=== PATIENT | male | born 1985 | race American Indian/Alaskan Native ===

== ENCOUNTER 2019-10-29 16:34 | Emergency (ER) | payer OTHER ==
[2019-10-29] MEDS ORDERED: FLU Vacc QS2019-20(6MOS+)/PF 60 MCG/0.5 ML SYRINGE IM ONE (17:30)
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
--- NOTE | 2019-11-03 06:34 | CT ---
Head CT Technique: Multiple axial sections through the brain were obtained. Intravenous contrast was not utilized. Comparison: Prior head CT study of 11/21/13. Findings: Ventricles are moderately dilated. Findings are stable from previous exam. Sulci over the convexities appear within normal limits. No abnormal parenchymal densities are seen. No evidence of intracranial hemorrhage. No midline shift or mass effect is seen. Visualized sinuses show nothing acute. No acute calvarial abnormality is seen. Mastoid sinuses are clear. Impression: 1. Stable head CT study from previous exam. 2. No acute intracranial abnormality is appreciated. Diagnostic code #2 This report was dictated in [place] Standard Time I agree with preliminary report from [facility], finalized on 10/29/19, 7:12 PM Central Time
== END 2019-10-29 18:27 | disposition home or self-care (01) ==
LOC: JD.ED 16:34
DX: S06.0X9A Concussion with loss of consciousness of unspecified duration, initial encounter (principal); R40.2412 Glasgow coma scale score 13-15, at arrival to emergency department; F17.210 Nicotine dependence, cigarettes, uncomplicated; Z88.5 Allergy status to narcotic agent; Z23 Encounter for immunization; W00.0XXA Fall on same level due to ice and snow, initial encounter; Y93.01 Activity, walking, marching and hiking; Y92.89 Other specified places as the place of occurrence of the external cause
CPT/HCPCS: 70450; 70450-26; 90686; 99283; 99284-25; G0008

== ENCOUNTER 2020-10-05 11:48 | Emergency (ER) | payer SELFPAY ==
[2020-10-05] MEDS ORDERED: Sodium Chloride 0.9% 10 ML Syringe FLUSH PRN (12:02)
--- NOTE | 2020-10-05 12:21 | EDM.PDOC ---
ED HPI GENERAL MEDICAL PROBLEM - General Chief Complaint: Lower Extremity Injury/Pain Stated Complaint: R LEG SWOLLEN Time Seen by Provider: 10/05/20 11:54 Source of Information: Reports: Patient, RN Notes Reviewed History Limitations: Reports: No Limitations - History of Present Illness INITIAL COMMENTS - FREE TEXT/NARRATIVE: Patient is a 35-year-old male presenting to the emergency department with complaints of redness, warmth, and swelling to his right lower extremity. He states that he bumped it a few days back has been developing progressive swelling, redness, and warmth since that time. He states 2 days ago he had a fever 103, however he has been afebrile since that time. He denies any history of blood clots. Denies any nausea or vomiting. Right Lower Leg Pain Score (Numeric/FACES): 7 - Related Data Allergies Allergy/AdvReac Type Severity Reaction Status Date / Time hydrocodone Allergy Itching Verified 10/05/20 11:56 Home Meds: Home Meds Doxycycline [Vibramycin] 100 mg PO BID 10 Days #20 tab 10/05/20 [Rx] Past Medical History Respiratory History: Reports: Pneumonia, Recurrent Psychiatric History: Reports: Anxiety - Past Surgical History Musculoskeletal Surgical History: Reports: Arthroscopic Knee, Other (See Below) Other Musculoskeletal Surgeries/Procedures:: tendon repair to R) knee Social & Family History - Tobacco Use Tobacco Use Status *Q: Current Every Day Tobacco User Years of Tobacco use: 4 Packs/Tins Daily: 0.1 - Caffeine Use Caffeine Use: Reports: None - Recreational Drug Use Recreational Drug Use: Yes Recreational Drug Type: Reports: Fentanyl Recreational Drug Use Frequency: Daily Review of Systems - Review of Systems Review Of Systems: See Below Constitutional: Reports: Fever. Denies: Chills Eyes: Reports: No Symptoms Ears: Reports: No Symptoms Nose: Reports: No Symptoms Mouth/Throat: Reports: No Symptoms Respiratory: Reports: No Symptoms Cardiovascular: Reports: No Symptoms GI/Abdominal: Reports: No Symptoms. Denies: Diarrhea, Nausea, Vomiting Genitourinary: Reports: No Symptoms Musculoskeletal: Reports: Other (Redness, warmth, and swelling of the right lower extremity the level of the ankle to mid calf.) Skin: Reports: No Symptoms Neurological: Reports: No Symptoms Psychiatric: Reports: No Symptoms ED EXAM, GENERAL - Physical Exam Exam: See Below General Appearance: Alert, WD/WN, No Apparent Distress Respiratory/Chest: No Respiratory Distress, Lungs Clear, Normal Breath Sounds, No Accessory Muscle Use, Chest Non-Tender Cardiovascular: Normal Peripheral Pulses, Regular Rate, Rhythm, No Edema, No G allop, No JVD, No Murmur, No Rub GI/Abdominal: Normal Bowel Sounds, Soft, Non-Tender, No Organomegaly, No Distention, No Abnormal Bruit, No Mass Extremities: Other (Generalized redness, warmth, and edema to the right lower extremity from the level of the ankle to the mid calf. No open areas.) Neurological: Alert, Oriented, CN II-XII Intact, Normal Cognition, Normal Gait, Normal Reflexes, No Motor/Sensory Deficits Psychiatric: Normal Affect, Normal Mood Skin Exam: Warm, Dry, Intact, Normal Color, No Rash Course - Vital Signs Last Recorded V/S: Last Vital Signs Temp 97.9 F 10/05/20 11:53 Pulse 72 10/05/20 11:53 Resp 18 10/05/20 11:53 BP 158/95 H 10/05/20 11:53 Pulse Ox 98 10/05/20 11:53 - Orders/Labs/Meds Orders: Active Orders 24 hr Category Date Time Status Peripheral IV Care [RC] . DIRECTED Care 10/05/20 12:02 Active VL Duplex Lwr Ext Veins Ltd Rt [US] Stat Exams 10/05/20 12:56 Taken Sodium Chloride 0.9% [Saline Flush] Med 10/05/20 12:02 Active 10 ml FLUSH ASDIRECTED PRN Peripheral IV Insertion Adult [OM.PC] Stat Oth 10/05/20 12:02 Ordered Medication Orders Sodium Chloride (Saline Flush) 10 ml FLUSH ASDIRECTED PRN PRN Reason: Keep Vein Open Labs: Laboratory Tests 10/05/20 10/05/20 10/05/20 Range/Units 12:16 12:16 12:16 WBC 8.84 (4.23-9.07) K/mm3 RBC 4.72 (4.63-6.08) M/mm3 Hgb 13.4 L (13.7-17.5) gm/dl Hct 39.5 L (40.1-51.0) % MCV 83.7 (79.0-92.2) fl MCH 28.4 (25.7-32.2) pg MCHC 33.9 (32.2-35.5) g/dl RDW Std Deviation 38.4 (35.1-43.9) fL Plt Count 274 (163-337) K/mm3 MPV 9.9 (9.4-12.3) fl Neut % (Auto) 74.7 H (34.0-67.9) % Lymph % (Auto) 14.7 L (21.8-53.1) % [place] % (Auto) 8.9 (5.3-12.2) % Eos % (Auto) 1.0 (0.8-7.0) Baso % (Auto) 0.5 (0.1-1.2) % Neut # (Auto) 6.60 H (1.78-5.38) K/mm3 Lymph # (Auto) 1.30 L (1.32-3.57) K/mm3 [place] # (Auto) 0.79 (0.30-0.82) K/mm3 Eos # (Auto) 0.09 (0.04-0.54) K/mm3 Baso # (Auto) 0.04 (0.01-0.08) K/mm3 D-Dimer, Quantitative 0.59 H (0.19-0.50) mg/L Sodium 135 L (136-145) mEq/L Potassium 4.1 (3.5-5.1) mEq/L Chloride 99 (98-107) mEq/L Carbon Dioxide 26 (21-32) mEq/L Anion Gap 14.1 (5-15) BUN 6 L (7-18) mg/dL Creatinine 0.8 (0.7-1.3) mg/dL Est Cr Clr Drug Dosing 172.43 mL/min Estimated GFR (MDRD) > 60 (>60) mL/min BUN/Creatinine Ratio 7.5 L (14-18) Glucose 145 H (74-106) mg/dL Calcium 9.1 (8.5-10.1) mg/dL Total Bilirubin 0.7 (0.2-1.0) mg/dL AST 15 (15-37) U/L ALT 22 (16-63) U/L Alkaline Phosphatase 120 H (46-116) U/L C-Reactive Protein 17.0 H* (<1.0) mg/dL Total Protein 8.2 (6.4-8.2) g/dl Albumin 3.1 L (3.4-5.0) g/dl Globulin 5.1 gm/dL Albumin/Globulin Ratio 0.6 L (1-2) Meds: Medications Generic Name Dose Route Start Last Admin Trade Name Beena PRN Reason Stop Dose Admin Sodium Chloride 10 ml 10/05/20 12:02 Saline Flush FLUSH ASDIRECTED PRN Keep Vein Open Discontinued Medications Generic Name Dose Route Start Last Admin Trade Name Freq PRN Reason Stop Dose Admin Ceftriaxone Sodium 1 gm/ 0 gm 10/05/20 13:51 Lidocaine HCl 2.1 ml IM 10/05/20 13:52 ONETIME ONE - Re-Assessments/Exams Free Text/Narrative Re-Assessment/Exam: Patient is a 35-year-old male presenting to the emergency department with complaints of redness, swelling, warmth of his right lower extremity from the level of the ankle to about mid calf. States a few days back that he bumped it and since then it has been getting progressively more red and swollen. He did have a fever 2 days ago, however has been afebrile since that time. Denies any nausea or vomiting. Exam is suspicious for cellulitis versus a less likely DVT. I ordered CBC, CMP, CRP, D-dimer. 10/05/20 13:56 Hematology was significant for D-dimer minimally elevated at 0.59, CRP 17.0. WBCs were normal. Venous Doppler ultrasound of the right lower extremity was completed and was negative for blood clot. We will treat the patient for cellulitis. He will receive Rocephin 1 g IM now, as well as doxycycline 200 mg by mouth. I will write a prescription for doxycycline. Discharge instructions as documented. Departure - Departure Time of Disposition: 13:56 Disposition: Home, Self-Care 01 Condition: Good Clinical Impression: Cellulitis Qualifiers: Site of cellulitis: extremity Site of cellulitis of extremity: lower extremity Laterality: right Qualified Code(s): L03.115 - Cellulitis of right lower limb - Discharge Information *PRESCRIPTION DRUG MONITORING PROGRAM REVIEWED*: No *COPY OF PRESCRIPTION DRUG MONITORING REPORT IN PATIENT JOSE: No Prescriptions: Doxycycline [Vibramycin] 100 mg PO BID 10 Days #20 tab Instructions: Cellulitis, Adult, [id number] Referrals: PCP,None [Primary Care Provider] - Forms: ED Department Discharge Additional Instructions: You were seen in the emergency department today for redness, warmth, and swelling to your right lower extremity. Work-up included blood work any ultrasound of the extremity. There was no signs of blood clot. As we discusse d, you are suffering from cellulitis which is an infection of the skin. While in the ER, you received an injection of Rocephin, as well as your first dose of doxycycline. A prescription for doxycycline 100 mg twice daily has been sent to [facility] [place] twice. Take this medication as prescribed starting this evening. Watch for signs of worsening infection including increased fever, nausea, vomiting, or any other concerning symptoms. If this should occur, return to the emergency department. Sepsis Event Note (ED) - Evaluation Sepsis Screening Result: No Definite Risk - Focused Exam Vital Signs: Vital Signs Temp Pulse Resp BP Pulse Ox 10/05/20 11:53 97.9 F 72 18 158/95 H 98 - My Orders Last 24 Hours: My Active Orders 10/05/20 12:02 Peripheral IV Care [RC] . DIRECTED Sodium Chloride 0.9% [Saline Flush] 10 ml FLUSH ASDIRECTED PRN Peripheral IV Insertion Adult [OM.PC] Stat 10/05/20 12:56 VL Duplex Lwr Ext Veins Ltd Rt [US] Stat - Assessment/Plan Last 24 Hours: My Active Orders 10/05/20 12:02 Peripheral IV Care [RC] . DIRECTED Sodium Chloride 0.9% [Saline Flush] 10 ml FLUSH ASDIRECTED PRN Peripheral IV Insertion Adult [OM.PC] Stat 10/05/20 12:56 VL Duplex Lwr Ext Veins Ltd Rt [US] Stat
[2020-10-05] MEDS ORDERED: cefTRIAXone 1 GM, Lidocaine 1% 2.1 ML IM ONE ×2 (13:51)
[2020-10-05] MEDS ORDERED: Doxycycline 100 MG Cap PO ONE (13:56)
[2020-10-05] MEDS ORDERED: Doxycycline 100 MG Cap ONE (14:09)
--- NOTE | 2020-10-05 14:41 | US ---
PROCEDURE INFORMATION: Exam: US Duplex Right Lower Extremity Veins, Limited Exam date and time: 10/05/2020 1:08 PM Age: 35 years old Clinical indication: Abnormal findings; Abnormal lab test; Elevated d-dimer TECHNIQUE: Imaging protocol: Real-time Duplex ultrasound of the Right Lower Extremity with 2-D cottrell scale, color Doppler flow and spectral waveform analysis with image documentation. Limited exam was focused on the right lower extremity veins. COMPARISON: No relevant prior studies available. FINDINGS: Right deep veins: Unremarkable. The common femoral, femoral, proximal profunda femoral and popliteal veins are patent without thrombus. Normal Doppler waveforms. Normal compressibility and/or augmentation response. Right superficial veins: Unremarkable. Saphenofemoral junction is patent without thrombus. Soft tissues: Unremarkable. IMPRESSION: No evidence of deep vein thrombosis. Thank you for allowing us to participate in the care of your patient. Dictated and Authenticated by: Andrew Leone DO 10/05/2020 2:35 PM Central Time ([place] & [place]) KANA
== END 2020-10-05 14:20 | disposition home or self-care (01) ==
LOC: JD.ED 11:48
DX: L03.115 Cellulitis of right lower limb (principal); Z88.5 Allergy status to narcotic agent; F17.210 Nicotine dependence, cigarettes, uncomplicated
CPT/HCPCS: 36415; 80053; 85025; 85379; 86140; 93971; 96372; 99284; A9270; J0696; J2001; 99283

== ENCOUNTER 2021-01-21 13:04 | Emergency (ER) | payer SELFPAY ==
--- NOTE | 2021-01-21 14:33 | EDM.PDOC ---
ED HPI GENERAL MEDICAL PROBLEM - General Chief Complaint: Lower Extremity Injury/Pain Stated Complaint: L FOOT PAIN Time Seen by Provider: 01/21/21 13:34 Source of Information: Reports: Patient, RN Notes Reviewed - History of Present Illness INITIAL COMMENTS - FREE TEXT/NARRATIVE: Onset of L foot pain 10 to 14 days ago. [place] something pop when he was walking. Does not recall that he twisted his foot or ankle. No fall or blow. Pain is mid dorsal foot with wt bearing. There has been some swelling. Has also had numbness bottom of feet for about the past 6 months. States he did have L foot injury many yrs ago that he never at treated. Left Foot Pain Score (Numeric/FACES): 6 - Related Data Allergies Allergy/AdvReac Type Severity Reaction Status Date / Time hydrocodone Allergy Itching Verified 01/21/21 13:31 Home Meds: Home Meds Doxycycline [Vibramycin] 100 mg PO BID 10 Days #20 tab 10/05/20 [Rx] Past Medical History - Past Health History Medical/Surgical History: Denies Medical/Surgical History Respiratory History: Reports: Pneumonia, Recurrent Psychiatric History: Reports: Anxiety - Past Surgical History Musculoskeletal Surgical History: Reports: Arthroscopic Knee, Other (See Below) Other Musculoskeletal Surgeries/Procedures:: tendon repair to R) knee Social & Family History - Tobacco Use Tobacco Use Status *Q: Current Some Day Tobacco User Years of Tobacco use: 4 Packs/Tins Daily: 0.1 - Caffeine Use Caffeine Use: Reports: None - Recreational Drug Use Recreational Drug Use: No Review of Systems - Review of Systems Review Of Systems: See Below Constitutional: Reports: No Symptoms Respiratory: Reports: No Symptoms Cardiovascular: Reports: No Symptoms GI/Abdominal: Reports: No Symptoms Musculoskeletal: Reports: Foot Pain Skin: Reports: No Symptoms Neurological: Denies: Numbness (bottom of both feet off and on for months) ED EXAM, GENERAL - Physical Exam Exam: See Below General Appearance: Alert, No Apparent Distress (at rest) Head: Atraumatic Neck: Supple Respiratory/Chest: No Respiratory Distress Extremities: Other (L foot mildly swollen compared to the right, mild to moderate tenderness mid ant foot, distal foot nontender, no visible deformity). No: Leg Pain Neurological: No Motor/Sensory Deficits Skin Exam: Warm, Dry, Normal Color Course - Vital Signs Last Recorded V/S: Last Vital Signs Temp 97.5 F 01/21/21 13:34 Pulse 80 01/21/21 14:52 Resp 18 01/21/21 13:34 BP 140/82 01/21/21 14:52 Pulse Ox 99 01/21/21 14:52 - Orders/Labs/Meds Orders: Active Orders 24 hr Category Date Time Status Durable Medical Equipment for Discharge [DME for Oth 01/21/21 14:30 Ordered Discharge] [COMM] Stat - Re-Assessments/Exams Free Text/Narrative Re-Assessment/Exam: 01/21/21 16:14 Xrays showed a small calcification base of 1st metatarsal, no other visible fx. I now have Radiologist report after pt. has been discharged and sent home that he has Lisfranc injury with lateral shifting of the metarsals in relation to the tarsal bones. Pt notified. I have no Orthopedist food preparation kitchen aide today. He would like to work with [facility]. 01/21/21 16:36, Have discussed this with Dr Krueger, Applications [employer]. He states the crutches and nonweightbearing is good treatment for now. They will call patient Sunday morning, give him a time to come to the clinic to see Dr Krueger sometime later Sunday. Pt notified. He will continue with crutches and nonweight bearing. Have advised he use an sangeeta wrap, continue to work with ice and elevation. Departure - Departure Time of Disposition: 14:31 Disposition: Home, Self-Care 01 Condition: Fair Clinical Impression: Foot pain, left Lisfranc dislocation Qualifiers: Encounter type: initial encounter Laterality: left Qualified Code(s): S93.325A - Dislocation of tarsometatarsal joint of left foot, initial encounter - Discharge Information Instructions: Foot Pain Referrals: PCP,None [Primary Care Provider] - Forms: ED Department Discharge Additional Instructions: Us crutches until pain resolving. Continue to rest and elevate foot as much as possible. Continue ice packs as needed for swelling. alternate tylenol and ibuprofen as needed for discomfort. See medical provider for completely physical, further evaluation regarding the numbness of your feet that you are experiencing. Call for appt. to be seen in the next 1 to 2 weeks. As noted Pt called to notify him of Lisfranc Injury now apparent looking back at his Xrays. Was not expecting or looking for anything like that with very benign mechanism of injury. He has been advised to use the crutches nonweight bearing as previously advised. [facility] will be calling him Sunday morning for appointment, most likely sometime Sunday 3 days from now. Sepsis Event Note (ED) - Evaluation Sepsis Screening Result: No Definite Risk - My Orders Last 24 Hours: My Active Orders 01/21/21 14:30 Durable Medical Equipment for Discharge [DME for Discharge] [COMM] Stat - Assessment/Plan Last 24 Hours: My Active Orders 01/21/21 14:30 Durable Medical Equipment for Discharge [DME for Discharge] [COMM] Stat
--- NOTE | 2021-01-21 15:18 | CR ---
Left foot: 4 views of the left foot were obtained. Comparison: No previous study. There is lateral shifting of the metatarsals in relation to the tarsal bones compatible with Lisfranc injury. Small bony densities are seen within the foot between the first and second metatarsals compatible with previous injury. No acute fracture is seen. Soft tissue swelling is noted. Impression: 1. Findings of Lisfranc injury as noted above. 2. Soft tissue swelling. Diagnostic code #3
== END 2021-01-21 14:53 | disposition home or self-care (01) ==
LOC: JD.ED 13:04
DX: S93.325A Dislocation of tarsometatarsal joint of left foot, initial encounter (principal); Z72.0 Tobacco use; Z88.5 Allergy status to narcotic agent; X50.1XXA Overexertion from prolonged static or awkward postures, initial encounter
CPT/HCPCS: 73630-26-LT; 73630-LT; 99283; 99283-25

== ENCOUNTER 2021-05-27 23:46 | Observation (INO) | payer SELFPAY ==
--- NOTE | 2021-05-28 00:09 | EDM.PDOC ---
ED HPI GENERAL MEDICAL PROBLEM - General Chief Complaint: Respiratory Problem Stated Complaint: SOB,COUGHING Time Seen by Provider: 05/27/21 23:55 Source of Information: Reports: Patient History Limitations: Reports: No Limitations - History of Present Illness INITIAL COMMENTS - FREE TEXT/NARRATIVE: Patient is a 36-year-old male who is complaining of having a cough which started last night occasionally productive of white sputum and worsening symptoms of dyspnea that turned much worse at 6 PM tonight. Patient denies any fever chills any nausea vomiting diarrhea. He is a cigarette smoker but has not smoked any over the last week and smokes less than a pack a day. He has no history of asthma or COPD. He has never had similar symptoms in the past. Patient is having dyspnea on exertion and is working hard to breathe sitting on the stretcher. He denies any bloody or tarry stools denies any swelling to his ankles or calfs. Is taken nothing for his current symptoms. Patient has no Covid risk factors having never traveled outside of [place] and did not receive any vaccination though his significant other in the room has been vaccinated. Duration: Day(s): (1 day), Getting Worse Location: Reports: Chest Severity: Moderate Improves with: Reports: None Worsens with: Reports: Breathing, Movement Associated Symptoms: Reports: No Other Symptoms Chest Pain Score (Numeric/FACES): 3 - Related Data Allergies Allergy/AdvReac Type Severity Reaction Status Date / Time hydrocodone Allergy Itching Verified 05/28/21 00:09 Past Medical History - Past Health History Medical/Surgical History: Denies Medical/Surgical History Respiratory History: Reports: Pneumonia, Recurrent Psychiatric History: Reports: Anxiety - Past Surgical History Musculoskeletal Surgical History: Reports: Arthroscopic Knee, Other (See Below) Other Musculoskeletal Surgeries/Procedures:: tendon repair to R) knee Social & Family History - Caffeine Use Caffeine Use: Reports: None ED ROS GENERAL - Review of Systems Review Of Systems: Comprehensive ROS is negative, except as noted in HPI. ED EXAM, GENERAL - Physical Exam Exam: See Below Exam Limited By: Respiratory Distress General Appearance: Alert, Moderate Distress Head: Atraumatic Neck: Normal Inspection, Supple Respiratory/Chest: Respiratory Distress, Decreased Breath Sounds, Retractions. No: Crackles, Rales, Rhonchi, Wheezing Cardiovascular: Regular Rate, Rhythm, No JVD GI/Abdominal: Normal Bowel Sounds Back Exam: Normal Inspection Extremities: Normal Inspection, No Pedal Edema Neurological: Alert, Oriented, Normal Cognition Psychiatric: Normal Affect Skin Exam: Warm, Dry, Normal Color, No Rash Lymphatic: No Adenopathy Course - Vital Signs Text/Narrative:: Patient is feeling somewhat better after 2 DuoNeb treatments. He feels that he is moving more air. His O2 sat on 2 L nasal cannula is 90%. When I turn off his oxygen even for a few minutes he goes down to 87%. I am getting a CT of his chest to rule out pneumonia since his D-dimer is 0.58. His white blood cell count is also normal. His Covid test results are negative and his cardiac enzymes are negative. Patient's CT scan shows some right middle lobe atelectas is but no clear pneumonia. On 2 L nasal cannula patient is now satting down to 88 to 89%. Ambulating him without oxygen drops his O2 sat to 80%. I am giving him an additional 20 mg of prednisone and another DuoNeb treatment and start him on Levaquin for probable pneumonia. Patient was discussed with hospitalist Dr. Ferraro and he will be admitted to the hospital at this time. He is asked me to write some bridging orders. Patient is aware of the above plan. Last Recorded V/S: Last Vital Signs Temp 98.5 F 05/27/21 23:58 Pulse 111 H 05/28/21 01:08 Resp 22 H 05/28/21 01:08 BP 145/79 H 05/28/21 01:08 Pulse Ox 88 L 05/28/21 01:08 - Orders/Labs/Meds Orders: Active Orders 24 hr Category Date Time Status Oxygen Therapy [RC] ASDIRECTED Care 05/28/21 00:12 Active RT Aerosol Therapy [RC] ASDIRECTED Care 05/28/21 00:16 Active RT Aerosol Therapy [RC] ASDIRECTED Care 05/28/21 00:45 Active RT Aerosol Therapy [RC] ASDIRECTED Care 05/28/21 02:52 Active Chest 2V [CR] Stat Exams 05/28/21 00:12 Stop Req Chest wo Cont [CT] Stat Exams 05/28/21 01:12 Taken Levofloxacin/Dextrose 5%-Water [Levaquin in D5W 500 MG/ Med 05/28/21 03:00 Active 100 ML] 500 mg Premix Bag 1 bag IV Q24H Medication Orders Levofloxacin/Dextrose 500 mg/ (Premix) 100 mls @ 100 mls/hr IV Q24H SENAIT Labs: Laboratory Tests 05/28/21 05/28/21 05/28/21 Range/Units 00:20 00:20 00:20 WBC 6.56 (4.23-9.07) K/mm3 RBC 5.27 (4.63-6.08) M/mm3 Hgb 14.6 (13.7-17.5) gm/dl Hct 43.3 (40.1-51.0) % MCV 82.2 (79.0-92.2) fl MCH 27.7 (25.7-32.2) pg MCHC 33.7 (32.2-35.5) g/dl RDW Std Deviation 41.5 (35.1-43.9) fL Plt Count 189 D (163-337) K/mm3 MPV 10.6 (9.4-12.3) fl Neutrophils % (Manual) 58 (40-60) % Band Neutrophils % 30 H (0-10) % Lymphocytes % (Manual) 7 L (20-40) % Atypical Lymphs % 0 % Monocytes % (Manual) 4 (2-10) % Eosinophils % (Manual) 0 L (0.8-7.0) % Basophils % (Manual) 1 (0.2-1.2) Platelet Estimate Adequate Plt Morphology Comment Normal RBC Morph Comment Normal D-Dimer, Quantitative (0.19-0.50) mg/L Sodium 135 L (136-145) mEq/L Potassium 4.3 (3.5-5.1) mEq/L Chloride 99 (98-107) mEq/L Carbon Dioxide 26 (21-32) mEq/L Anion Gap 14.3 (5-15) BUN 12 (7-18) mg/dL Creatinine 0.7 (0.7-1.3) mg/dL Est Cr Clr Drug Dosing 195.21 mL/min Estimated GFR (MDRD) > 60 (>60) mL/min BUN/Creatinine Ratio 17.1 (14-18) Glucose 133 H (70-99) mg/dL Lactic Acid 0.8 (0.4-2.0) mmol/L Calcium 8.9 (8.5-10.1) mg/dL Total Bilirubin 1.0 (0.2-1.0) mg/dL AST 35 (15-37) U/L ALT 26 (16-63) U/L Alkaline Phosphatase 150 H (46-116) U/L CK-MB (CK-2) 1.0 (0-3.6) ng/ml Troponin I < 0.017 (0.00-0.056) ng/mL Total Protein 9.1 H (6.4-8.2) g/dl Albumin 3.7 (3.4-5.0) g/dl Globulin 5.4 gm/dL Albumin/Globulin Ratio 0.7 L (1-2) Influenza Type A RNA (NEGATIVE) Influenza Type B RNA (NEGATIVE) SARS-CoV-2 RNA (AMITA) (NEGATIVE) 05/28/21 05/28/21 Range/Units 00:20 00:20 WBC (4.23-9.07) K/mm3 RBC (4.63-6.08) M/mm3 Hgb (13.7-17.5) gm/dl Hct (40.1-51.0) % MCV (79.0-92.2) fl MCH (25.7-32.2) pg MCHC (32.2-35.5) g/dl RDW Std Deviation (35.1-43.9) fL Plt Count (163-337) K/mm3 MPV (9.4-12.3) fl Neutrophils % (Manual) (40-60) % Band Neutrophils % (0-10) % Lymphocytes % (Manual) (20-40) % Atypical Lymphs % % Monocytes % (Manual) (2-10) % Eosinophils % (Manual) (0.8-7.0) % Basophils % (Manual) (0.2-1.2) Platelet Estimate Plt Morphology Comment RBC Morph Comment D-Dimer, Quantitative 0.58 H (0.19-0.50) mg/L Sodium (136-145) mEq/L Potassium (3.5-5.1) mEq/L Chloride (98-107) mEq/L Carbon Dioxide (21-32) mEq/L Anion Gap (5-15) BUN (7-18) mg/dL Creatinine (0.7-1.3) mg/dL Est Cr Clr Drug Dosing mL/min Estimated GFR (MDRD) (>60) mL/min BUN/Creatinine Ratio (14-18) Glucose (70-99) mg/dL Lactic Acid (0.4-2.0) mmol/L Calcium (8.5-10.1) mg/dL Total Bilirubin (0.2-1.0) mg/dL AST (15-37) U/L ALT (16-63) U/L Alkaline Phosphatase (46-116) U/L CK-MB (CK-2) (0-3.6) ng/ml Troponin I (0.00-0.056) ng/mL Total Protein (6.4-8.2) g/dl Albumin (3.4-5.0) g/dl Globulin gm/dL Albumin/Globulin Ratio (1-2) Influenza Type A RNA Negative (NEGATIVE) Influenza Type B RNA Negative (NEGATIVE) SARS-CoV-2 RNA (AMITA) Negative (NEGATIVE) Meds: Medications Generic Name Dose Route Start Last Admin Trade Name Freq PRN Reason Stop Dose Admin Levofloxacin/Dextrose 500 mg/ 100 mls @ 100 mls/hr 05/28/21 03:00 Premix IV Q24H SENAIT Discontinued Medications Generic Name Dose Route Start Last Admin Trade Name Freq PRN Reason Stop Dose Admin Albuterol/Ipratropium 3 ml 05/28/21 00:15 05/28/21 00:34 Albuterol/Ipratropium 3.0-0.5 Mg/3 Ml Neb Soln NEB 05/28/21 00:16 3 ml ONETIME ONE Administration Albuterol/Ipratropium 3 ml 05/28/21 00:45 05/28/21 00:53 Albuterol/Ipratropium 3.0-0.5 Mg/3 Ml Neb Soln NEB 05/28/21 00:46 3 ml ONETIME ONE Administration Albuterol/Ipratropium Confirm 05/28/21 00:44 05/28/21 00:53 Albuterol/Ipratropium 3.0-0.5 Mg/3 Ml Neb Soln Administered 05/28/21 00:45 Not Given Dose 3 ml .ROUTE .STK-MED ONE Albuterol/Ipratropium 3 ml 05/28/21 02:52 05/28/21 02:58 Albuterol/Ipratropium 3.0-0.5 Mg/3 Ml Neb Soln NEB 05/28/21 02:53 3 ml ONETIME ONE Administration Prednisone 20 mg 05/28/21 00:16 05/28/21 01:04 Prednisone 20 Mg Tab PO 05/28/21 00:17 Not Given ONETIME ONE Prednisone 40 mg 05/28/21 00:25 05/28/21 01:01 Prednisone 20 Mg Tab PO 05/28/21 00:26 40 mg ONETIME ONE Administration Prednisone 20 mg 05/28/21 02:54 Prednisone 20 Mg Tab PO 05/28/21 02:55 ONETIME ONE Departure - Departure Time of Disposition: 03:09 Disposition: Refer to Observation Condition: Fair Clinical Impression: Dyspnea, Hypoxia, Asthmatic bronchitis - Discharge Information Referrals: PCP,None [Primary Care Provider] - Forms: ED Department Discharge Sepsis Event Note (ED) - Focused Exam Vital Signs: Vital Signs Temp Pulse Resp BP Pulse Ox Pulse Ox 05/28/21 01:08 111 H 22 H 145/79 H 88 L 05/28/21 00:53 92 L 05/28/21 00:37 92 L 05/27/21 23:58 98.5 F 93 17 154/80 H 88 L - My Orders Last 24 Hours: My Active Orders 05/28/21 00:12 Oxygen Therapy [RC] ASDIRECTED Chest 2V [CR] Stat 05/28/21 00:16 RT Aerosol Therapy [RC] ASDIRECTED 05/28/21 00:45 RT Aerosol Therapy [RC] ASDIRECTED 05/28/21 01:12 Chest wo Cont [CT] Stat 05/28/21 02:52 RT Aerosol Therapy [RC] ASDIRECTED 05/28/21 03:00 Levofloxacin/Dextrose 5%-Water [Levaquin in D5W 500 MG/100 ML] 500 mg Premix Bag 1 bag IV Q24H - Assessment/Plan Last 24 Hours: My Active Orders 05/28/21 00:12 Oxygen Therapy [RC] ASDIRECTED Chest 2V [CR] Stat 05/28/21 00:16 RT Aerosol Therapy [RC] ASDIRECTED 05/28/21 00:45 RT Aerosol Therapy [RC] ASDIRECTED 05/28/21 01:12 Chest wo Cont [CT] Stat 05/28/21 02:52 RT Aerosol Therapy [RC] ASDIRECTED 05/28/21 03:00 Levofloxacin/Dextrose 5%-Water [Levaquin in D5W 500 MG/100 ML] 500 mg Premix Bag 1 bag IV Q24H
[2021-05-28] MEDS ORDERED: Albuterol/Ipratropium 3.0-0.5 MG/3 ML Neb Soln NEB ONE ×3 (00:15→02:52)
[2021-05-28] MEDS ORDERED: predniSONE 20 MG Tab PO ONE ×3 (00:16→02:54)
[2021-05-28] MEDS ORDERED: Albuterol/Ipratropium 3.0-0.5 MG/3 ML Neb Soln ONE (00:44)
[2021-05-28 01:12] LABS: CORONAVIRUS COVID-19 NAA NEGATIVE (NEGATIVE)
[2021-05-28] MEDS: Levofloxacin/Dextrose 5%-Water 500 MG in Premix Bag 1 BAG IV SCH (03:15)
[2021-05-28] MEDS: Albuterol/Ipratropium 3.0-0.5 MG/3 ML Neb Soln NEB PRN ×2 (05:58→11:55)
[2021-05-28] MEDS: Acetaminophen 325 MG Tab PO PRN ×2 (07:25→20:20)
--- NOTE | 2021-05-28 07:25 | PCM.HP.2 ---
H&P History of Present Illness - General Date of Service: 05/28/21 Admit Problem/Dx: Admission Diagnosis/Problem Admission Diagnosis/Problem Hypoxemia - History of Present Illness Initial Comments - Free Text/Narative: This is a 36M with PMhx of active tobacco use presenting for evaluation of SOB. Over the last two days he has had worsening SOB, productive cough, and wheezing. He endorses nausea. He denies chest pain, chest pressure, abdominal pain, fever. Denies headache. he presented to ED where CT Chest showed area of subsegmental atelectasis in right middle lobe otherwise unremarkable. he states his SOB improved with duonebs. He was given prednisone, levaquin, and duonebs and admitted for further evaluation PMHX -active tobacco use d/o -hx of PNA Surgical Hx -hx of knee surgery Family hx; reviewed noncontributory to current illness Social Hx +active tobacco use Chest Pain Score (Numeric/FACES): 5 - Related Data Allergies/Adverse Reactions: Allergies Allergy/AdvReac Type Severity Reaction Status Date / Time hydrocodone Allergy Itching Verified 05/28/21 03:52 Home Medications: Home Meds . [No Known Home Meds] 05/28/21 [History] Past Medical History - Past Health History Medical/Surgical History: Denies Medical/Surgical History Respiratory History: Reports: Pneumonia, Recurrent Psychiatric History: Reports: Anxiety - Past Surgical History Musculoskeletal Surgical History: Reports: Arthroscopic Knee, Other (See Below) Other Musculoskeletal Surgeries/Procedures:: tendon repair to R) knee Social & Family History - Family History Family Medical History: No Pertinent Family History - Tobacco Use Tobacco Use Status *Q: Current Some Day Tobacco User Years of Tobacco use: 3 Packs/Tins Daily: 0.2 Used Tobacco, but Quit: No Second Hand Smoke Exposure: No - Caffeine Use Caffeine Use: Reports: None - Recreational Drug Use Recreational Drug Use: No H&P Review of Systems - Review of Systems: Review Of Systems: Comprehensive ROS is negative, except as noted in HPI. Exam - Exam Exam: See Below - Vital Signs Vital Signs: Last Vital Signs Temp 98.3 F 05/28/21 03:45 Pulse 97 05/28/21 03:45 Resp 18 05/28/21 03:45 BP 161/83 H 05/28/21 03:45 Pulse Ox 90 L 05/28/21 05:58 Weight: 400 lb 4.8 oz - Exam Physical Exam Comments:: Gen: no acute distress HEENT NCAT EOMI MMM neck: supple CV : mild tachycardia; normal s1 s2 Lungs: End expiratory wheezing Abd:soft, nt, nd Neuro: AOX3, CN intact nonfocal screening exam MSK: age appropriate muscle mass Psyche appropriate affect - Patient Data Lab Results Last 24 hrs: Laboratory Results - last 24 hr 05/28/21 05/28/21 05/28/21 Range/Units 00:20 00:20 00:20 WBC 6.56 (4.23-9.07) K/mm3 RBC 5.27 (4.63-6.08) M/mm3 Hgb 14.6 (13.7-17.5) gm/dl Hct 43.3 (40.1-51.0) % MCV 82.2 (79.0-92.2) fl MCH 27.7 (25.7-32.2) pg MCHC 33.7 (32.2-35.5) g/dl RDW Std Deviation 41.5 (35.1-43.9) fL Plt Count 189 D (163-337) K/mm3 MPV 10.6 (9.4-12.3) fl Neutrophils % (Manual) 58 (40-60) % Band Neutrophils % 30 H (0-10) % Lymphocytes % (Manual) 7 L (20-40) % Atypical Lymphs % 0 % Monocytes % (Manual) 4 (2-10) % Eosinophils % (Manual) 0 L (0.8-7.0) % Basophils % (Manual) 1 (0.2-1.2) Platelet Estimate Adequate Plt Morphology Comment Normal RBC Morph Comment Normal D-Dimer, Quantitative (0.19-0.50) mg/L Sodium 135 L (136-145) mEq/L Potassium 4.3 (3.5-5.1) mEq/L Chloride 99 (98-107) mEq/L Carbon Dioxide 26 (21-32) mEq/L Anion Gap 14.3 (5-15) BUN 12 (7-18) mg/dL Creatinine 0.7 (0.7-1.3) mg/dL Est Cr Clr Drug Dosing 195.21 mL/min Estimated GFR (MDRD) > 60 (>60) mL/min BUN/Creatinine Ratio 17.1 (14-18) Glucose 133 H (70-99) mg/dL Lactic Acid 0.8 (0.4-2.0) mmol/L Calcium 8.9 (8.5-10.1) mg/dL Total Bilirubin 1.0 (0.2-1.0) mg/dL AST 35 (15-37) U/L ALT 26 (16-63) U/L Alkaline Phosphatase 150 H (46-116) U/L CK-MB (CK-2) 1.0 (0-3.6) ng/ml Troponin I < 0.017 (0.00-0.056) ng/mL Total Protein 9.1 H (6.4-8.2) g/dl Albumin 3.7 (3.4-5.0) g/dl Globulin 5.4 gm/dL Albumin/Globulin Ratio 0.7 L (1-2) Influenza Type A RNA (NEGATIVE) Influenza Type B RNA (NEGATIVE) SARS-CoV-2 RNA (AMITA) (NEGATIVE) 05/28/21 05/28/21 Range/Units 00:20 00:20 WBC (4.23-9.07) K/mm3 RBC (4.63-6.08) M/mm3 Hgb (13.7-17.5) gm/dl Hct (40.1-51.0) % MCV (79.0-92.2) fl MCH (25.7-32.2) pg MCHC (32.2-35.5) g/dl RDW Std Deviation (35.1-43.9) fL Plt Count (163-337) K/mm3 MPV (9.4-12.3) fl Neutrophils % (Manual) (40-60) % Band Neutrophils % (0-10) % Lymphocytes % (Manual) (20-40) % Atypical Lymphs % % Monocytes % (Manual) (2-10) % Eosinophils % (Manual) (0.8-7.0) % Basophils % (Manual) (0.2-1.2) Platelet Estimate Plt Morphology Comment RBC Morph Comment D-Dimer, Quantitative 0.58 H (0.19-0.50) mg/L Sodium (136-145) mEq/L Potassium (3.5-5.1) mEq/L Chloride (98-107) mEq/L Carbon Dioxide (21-32) mEq/L Anion Gap (5-15) BUN (7-18) mg/dL Creatinine (0.7-1.3) mg/dL Est Cr Clr Drug Dosing mL/min Estimated GFR (MDRD) (>60) mL/min BUN/Creatinine Ratio (14-18) Glucose (70-99) mg/dL Lactic Acid (0.4-2.0) mmol/L Calcium (8.5-10.1) mg/dL Total Bilirubin (0.2-1.0) mg/dL AST (15-37) U/L ALT (16-63) U/L Alkaline Phosphatase (46-116) U/L CK-MB (CK-2) (0-3.6) ng/ml Troponin I (0.00-0.056) ng/mL Total Protein (6.4-8.2) g/dl Albumin (3.4-5.0) g/dl Globulin gm/dL Albumin/Globulin Ratio (1-2) Influenza Type A RNA Negative (NEGATIVE) Influenza Type B RNA Negative (NEGATIVE) SARS-CoV-2 RNA (AMITA) Negative (NEGATIVE) Result Diagrams: 05/28/21 00:20 05/28/21 00:20 Sepsis Event Note - Evaluation Sepsis Screening Result: No Definite Risk - Focused Exam Vital Signs: Vital Signs Temp Pulse Pulse Resp BP Pulse Ox Pulse Ox 05/28/21 05:58 90 L 05/28/21 03:55 92 L 05/28/21 03:45 98.3 F 97 18 161/83 H 93 L 05/28/21 03:00 90 L 05/28/21 01:08 111 H 22 H 145/79 H 88 L 05/28/21 00:53 92 L 05/28/21 00:37 92 L 05/27/21 23:58 98.5 F 93 17 154/80 H 88 L *Q Meaningful Use (ADM) - VTE *Q VTE Criteria *Q: 2 Problem List Initiated/Reviewed/Updated: Yes Orders Last 24hrs: Active Orders 24 hr Category Date Time Status Admission Status [Patient Status] [ADT] Routine ADT 05/28/21 03:07 Active Bedrest Bathroom Privileges [RC] ASDIRECTED Care 05/28/21 04:31 Active Oxygen Therapy Adult [Oxygen Therapy] [RC] ASDIRECTED Care 05/28/21 04:31 Active RT Aerosol Therapy [RC] ASDIRECTED Care 05/28/21 04:33 Active Regular Diet [DIET] Diet 05/28/21 Breakfast Active Chest wo Cont [CT] Stat Exams 05/28/21 01:12 Taken Acetaminophen [TylenoL] Med 05/28/21 06:57 Active 650 mg PO Q4H PRN Albuterol/Ipratropium [DuoNeb 3.0-0.5 MG/3 ML] Med 05/28/21 04:32 Active 3 ml NEB Q1H PRN Levofloxacin/Dextrose 5%-Water [Levaquin in D5W 500 MG/ Med 05/28/21 03:00 Active 100 ML] 500 mg Premix Bag 1 bag IV Q24H predniSONE Med 05/28/21 09:00 Active 60 mg PO DAILY Pulse Oximetry Continuous Monitoring [OM.PC] Routine Oth 05/28/21 04:31 Active Resuscitation Status Routine Resus Stat 05/28/21 04:30 Ordered Medication Orders Acetaminophen (Acetaminophen 325 Mg Tab) 650 mg PO Q4H PRN PRN Reason: pain Albuterol/Ipratropium (Albuterol/Ipratropium 3.0-0.5 Mg/3 Ml Neb Soln) 3 ml NEB Q1H PRN PRN Reason: Dyspnea Last Admin: 05/28/21 05:58 Dose: 3 ml Documented by: VALERY Levofloxacin/Dextrose 500 mg/ (Premix) 100 mls @ 100 mls/hr IV Q24H SENAIT Last Admin: 05/28/21 03:15 Dose: 100 mls/hr Documented by: CORINE Prednisone (Prednisone 20 Mg Tab) 60 mg PO DAILY [facility] Assessment/Plan Comment:: Assessment: This is 36M with PMhx of active tobacco use presenting for sob, cough, wheezing. He was given steroids/duoneb/levaquin in ED 1. Acute hypoxia secondary to acute bronchitis 2. Hx of active tobacco use disorder 3. Obesity 4. Hypertension 5. Anxiety Plan -admit to observation -continue steroids/antibiotics -scheduled duonebs -tessalon; prn robitussin -wean oxygen -prn ativan low dose for severe anxiety Code status-Full Code DVT ppx-lovenox Dispo-home 1-2 days - Mortality Measure Prognosis:: Good
[2021-05-28] MEDS ORDERED: Ondansetron 4 MG/2 ML SDV IV PRN (07:30)
[2021-05-28] MEDS ORDERED: LORazepam 0.5 MG Tab PO ONE (07:45)
[2021-05-28] MEDS: predniSONE 20 MG Tab PO SCH (07:59)
[2021-05-28] MEDS: guaiFENesin/Dextromethorphan 100-10 MG/5 ML Soln 5 ML Cup PO PRN ×3 (08:58→20:19)
[2021-05-28] MEDS: Benzonatate 100 MG Cap PO SCH ×3 (08:58→20:19)
[2021-05-28] MEDS: Albuterol/Ipratropium 3.0-0.5 MG/3 ML Neb Soln NEB SCH ×3 (09:06→20:31)
[2021-05-28] MEDS ORDERED: Enoxaparin 40 MG/0.4 ML Syringe SUBCUT ONE (14:08)
[2021-05-28] MEDS ORDERED: LORazepam 0.5 MG Tab PO PRN (15:14)
[2021-05-28] MEDS ORDERED: traZODone 50 MG Tab PO PRN (20:27)
[2021-05-28] MEDS: Fluticasone Propionate Nasal Spray 16 GM Bottle NASBOTH SCH (21:57)
[2021-05-29] MEDS: Levofloxacin/Dextrose 5%-Water 500 MG in Premix Bag 1 BAG IV SCH (02:37)
[2021-05-29] MEDS: guaiFENesin/Dextromethorphan 100-10 MG/5 ML Soln 5 ML Cup PO PRN (02:42)
[2021-05-29] MEDS: Albuterol/Ipratropium 3.0-0.5 MG/3 ML Neb Soln NEB PRN ×2 (03:46→08:18)
[2021-05-29] MEDS: Albuterol/Ipratropium 3.0-0.5 MG/3 ML Neb Soln NEB SCH (06:45)
--- NOTE | 2021-05-29 08:05 | PCM.DCSUM1 ---
Discharge Summary - Hospital Course Free Text/Narrative:: This is a 36M with PMhx of active tobacco use presenting for evaluation of SOB. Over the last two days he has had worsening SOB, productive cough, and wheezing. He endorses nausea. He denies chest pain, chest pressure, abdominal pain, fever. Denies headache. he presented to ED where CT Chest showed area of subsegmental atelectasis in right middle lobe otherwise unremarkable. he states his SOB improved with duonebs. He was given prednisone, levaquin, and duonebs and admitted for further evaluation Gen: no acute distress HEENT NCAT EOMI MMM neck: supple CV : RRR; normal s1 s2 Lungs: End expiratory wheezing Abd:soft, nt, nd Neuro: AOX3, CN intact nonfocal screening exam MSK: age appropriate muscle mass Psyche appropriate affect Assessment: This is 36M with PMhx of active tobacco use presenting for sob, cough, wheezing. He was given steroids/duoneb/levaquin in ED 1. Acute hypoxia secondary to acute bronchitis 2. Hx of active tobacco use disorder 3. Obesity 4. Hypertension 5. Anxiety Plan -admited to observation -treated with steroids/antibiotics -scheduled duonebs -tessalon; prn robitussin -wean oxygen On 05/29/21 The patient requested to be discharged against medical advice. risk of premature discharge including potential of respiratory compromise and explained to patient. The patient understood the risks and stated he would return to ER/ED if symptoms worsened. He was given prescription for prednisone and albuterol. He was instructed to follow up with primary clinic tomorrow for post hospital follow up Discharge time: 40 minutes Diagnosis: Stroke: No - Discharge Data Discharge Date: 05/29/21 Discharge Disposition: Against Medical Advice 07 Condition: Stable - Referral to Home Health Primary Care Physician: PCP None - Patient Summary/Data Consults: Consultations 05/28/21 07:30 Respiratory Care Assess and Treatment [CONS] Routine - Patient Instructions Diet: Regular Diet as Tolerated Activity: As Tolerated Driving: May Drive Today Notify Provider of: Fever, Nausea and/or Vomiting Other/Special Instructions: please follow up to be seen in Primary clinic in 3 days following discharge. Return to ER or call primary clinic with worsening shortness breath, worsening cough, fever, chest pain - Discharge Plan *PRESCRIPTION DRUG MONITORING PROGRAM REVIEWED*: Not Applicable *COPY OF PRESCRIPTION DRUG MONITORING REPORT IN PATIENT JOSE: Not Applicable Prescriptions/Med Rec: predniSONE 40 mg PO WITHBREAKFAST 5 Days #5 tab Albuterol [Proventil HFA] 1 puff INH QID PRN #1 inhaler PRN Reason: Shortness Of Breath Tobacco Cessation Medication: Prescription Refused Home Medications: Home Meds Albuterol [Proventil HFA] 1 puff INH QID PRN #1 inhaler 05/29/21 [Rx] predniSONE 40 mg PO WITHBREAKFAST 5 Days #5 tab 05/29/21 [Rx] Oxygen Therapy Mode: Room Air Patient Handouts: Shortness of Breath, Adult, [id number], Acute Bronchitis, Adult, [id number] Forms: ED Department Discharge Referrals: Nidhi Hopkins PA SHIPPING COORDINATOR [Ordering Only Provider] - Isabela Salcedo NP [Ordering Only Provider] - PCP,None [Primary Care Provider] - - Discharge Summary/Plan Comment DC Time >30 min.: Yes - Patient Data Vitals - Most Recent: Last Vital Signs Temp 97.5 F 05/29/21 03:54 Pulse 85 05/29/21 05:01 Resp 19 05/29/21 05:01 BP 145/99 H 05/29/21 03:54 Pulse Ox 93 L 05/29/21 07:19 Weight - Most Recent: 389 lb 9.6 oz I&O - Last 24 hours: Intake & Output 05/28/21 05/29/21 05/29/21 22:59 06:59 14:59 Intake Total 910 2100 Balance 910 2100 Lab Results - Last 24 hrs: Laboratory Results - last 24 hr 05/29/21 Range/Units 05:20 WBC 5.78 (4.23-9.07) K/mm3 RBC 5.11 (4.63-6.08) M/mm3 Hgb 14.0 (13.7-17.5) gm/dl Hct 42.1 (40.1-51.0) % MCV 82.4 (79.0-92.2) fl MCH 27.4 (25.7-32.2) pg MCHC 33.3 (32.2-35.5) g/dl RDW Std Deviation 41.9 (35.1-43.9) fL Plt Count 189 (163-337) K/mm3 MPV 10.7 (9.4-12.3) fl Neut % (Auto) 66.9 (34.0-67.9) % Lymph % (Auto) 20.2 L (21.8-53.1) % [place] % (Auto) 11.9 (5.3-12.2) % Eos % (Auto) 0.3 L (0.8-7.0) Baso % (Auto) 0.7 (0.1-1.2) % Neut # (Auto) 3.86 (1.78-5.38) K/mm3 Lymph # (Auto) 1.17 L (1.32-3.57) K/mm3 [place] # (Auto) 0.69 (0.30-0.82) K/mm3 Eos # (Auto) 0.02 L (0.04-0.54) K/mm3 Baso # (Auto) 0.04 (0.01-0.08) K/mm3 Manual Slide Review Normal smear Med Orders - Current: Current Medications Acetaminophen (Acetaminophen 325 Mg Tab) 650 mg PO Q4H PRN PRN Reason: pain Last Admin: 05/28/21 20:20 Dose: 650 mg Documented by: Albuterol/Ipratropium (Albuterol/Ipratropium 3.0-0.5 Mg/3 Ml Neb Soln) 3 ml NEB Q1H PRN PRN Reason: Dyspnea Last Admin: 05/29/21 03:46 Dose: 3 ml Documented by: Albuterol/Ipratropium (Albuterol/Ipratropium 3.0-0.5 Mg/3 Ml Neb Soln) 3 ml NEB QIDRT [facility] Last Admin: 05/29/21 06:45 Dose: 3 ml Documented by: Benzonatate (Benzonatate 100 Mg Cap) 100 mg PO TID [facility] Last Admin: 05/28/21 20:19 Dose: 100 mg Documented by: Fluticasone Propionate (Fluticasone Propionate Nasal [place] 16 Gm Bottle) 1 gm NASBOTH DAILY [facility] Last Admin: 05/28/21 21:57 Dose: 1 spray Documented by: Guaifenesin/Phenylephrine HCl (Guaifenesin/Dextromethorphan 100-10 Mg/5 Ml Soln 5 Ml Cup) 5 ml PO Q4H PRN PRN Reason: Other Last Admin: 05/29/21 02:42 Dose: 5 ml Documented by: Levofloxacin/Dextrose 500 mg/ (Premix) 100 mls @ 100 mls/hr IV Q24H SENAIT Last Admin: 05/29/21 02:37 Dose: 100 mls/hr Documented by: Lorazepam (Lorazepam 0.5 Mg Tab) 0.25 mg PO Q12H PRN PRN Reason: Anxiety Last Admin: 05/28/21 15:23 Dose: 0.25 mg Documented by: Ondansetron HCl (Ondansetron 4 Mg/2 Ml Sdv) 4 mg IV Q4H PRN PRN Reason: Nausea/Vomiting Prednisone (Prednisone 20 Mg Tab) 60 mg PO DAILY [facility] Last Admin: 05/28/21 07:59 Dose: 60 mg Documented by: Trazodone HCl (Trazodone 50 Mg Tab) 50 mg PO BEDTIME PRN PRN Reason: Sleep Last Admin: 05/28/21 20:55 Dose: 50 mg Documented by: Discontinued Medications Albuterol/Ipratropium (Albuterol/Ipratropium 3.0-0.5 Mg/3 Ml Neb Soln) 3 ml NEB ONETIME ONE Stop: 05/28/21 00:16 Last Admin: 05/28/21 00:34 Dose: 3 ml Documented by: Albuterol/Ipratropium (Albuterol/Ipratropium 3.0-0.5 Mg/3 Ml Neb Soln) 3 ml NEB ONETIME ONE Stop: 05/28/21 00:46 Last Admin: 05/28/21 00:53 Dose: 3 ml Documented by: Albuterol/Ipratropium (Albuterol/Ipratropium 3.0-0.5 Mg/3 Ml Neb Soln) Confirm Administered Dose 3 ml .ROUTE .STK-MED ONE Stop: 05/28/21 00:45 Last Admin: 05/28/21 00:53 Dose: Not Given Documented by: Albuterol/Ipratropium (Albuterol/Ipratropium 3.0-0.5 Mg/3 Ml Neb Soln) 3 ml NEB ONETIME ONE Stop: 05/28/21 02:53 Last Admin: 05/28/21 02:58 Dose: 3 ml Documented by: Enoxaparin Sodium (Enoxaparin 40 Mg/0.4 Ml Syringe) 40 mg SUBCUT ONETIME ONE Stop: 05/28/21 14:09 Last Admin: 05/28/21 14:32 Dose: 40 mg Documented by: Lorazepam (Lorazepam 0.5 Mg Tab) 0.5 mg PO ONETIME ONE Stop: 05/28/21 07:46 Last Admin: 05/28/21 07:57 Dose: 0.5 mg Documented by: Prednisone (Prednisone 20 Mg Tab) 20 mg PO ONETIME ONE Stop: 05/28/21 00:17 Last Admin: 05/28/21 01:04 Dose: Not Given Documented by: Prednisone (Prednisone 20 Mg Tab) 40 mg PO ONETIME ONE Stop: 05/28/21 00:26 Last Admin: 05/28/21 01:01 Dose: 40 mg Documented by: Prednisone (Prednisone 20 Mg Tab) 20 mg PO ONETIME ONE Stop: 05/28/21 02:55 Last Admin: 05/28/21 03:15 Dose: 20 mg Documented by:
[2021-05-29] MEDS: predniSONE 20 MG Tab PO SCH (08:13)
[2021-05-29] MEDS: Fluticasone Propionate Nasal Spray 16 GM Bottle NASBOTH SCH (08:14)
[2021-05-29] MEDS: Benzonatate 100 MG Cap PO SCH (08:14)
--- NOTE | 2021-05-29 12:43 | CT ---
CT chest Technique: Multiple axial sections were obtained from above the dome of the diaphragm inferiorly through the lung bases. Intravenous contrast was not utilized. Reconstructed coronal and sagittal images were obtained. Comparison: No prior chest imaging is available. Findings: Thoracic aorta shows no aneurysm. Mediastinum shows no adenopathy. No pericardial thickening is seen. No axillary adenopathy is seen. Visualized upper abdominal structures show no discrete abnormality. Lung window settings were reviewed. There is a linear area of density within the right middle lobe most likely representing atelectasis. Lungs otherwise are clear with no acute parenchymal change. Bone window settings were reviewed. Slight degenerative spurring is noted within the lower thoracic spine. No acute osseous abnormality is appreciated. Impression: 1. Mild atelectasis within the right middle lobe. 2. Mild endplate spurring within the lower thoracic spine. 3. Nothing acute is otherwise seen on noncontrast CT study of the chest. Diagnostic code #2 I agree with preliminary report from [facility], finalized on 05/28/21, 3:38 AM CDT, code 1
== END 2021-05-29 08:25 | disposition left against medical advice (07) ==
LOC: JD.ED 23:46 → JD.ICU 05-28 03:07
PROVIDERS: ADMIT Hospitalist; ATTEND Hospitalist
DX: R09.02 Hypoxemia (principal); J20.9 Acute bronchitis, unspecified; E66.9 Obesity, unspecified; I10 Essential (primary) hypertension; F17.210 Nicotine dependence, cigarettes, uncomplicated; Z20.822 Contact with and (suspected) exposure to COVID-19; Z79.899 Other long term (current) drug therapy; Z88.5 Allergy status to narcotic agent; Z68.41 Body mass index [BMI] 40.0-44.9, adult
CPT/HCPCS: 0240U; 36415; 71250; 71250-26; 80053; 82553; 83605; 84484; 85007; 85025; 85027; 85379; 94640; 94762; A9270-GY; J1650; J1956; J7512; J7620-GY